=== PATIENT | female | born 1960 | race African-American/Black ===

== ENCOUNTER 2018-05-22 10:44 | Emergency (ER) | payer BC ==
[~2018-05-22] VITALS: Ht 165.1 cm; Wt 75.9 kg
[2018-05-22 10:53] VITALS: Ht 165.1 cm; Wt 75.9 kg
[2018-05-22 14:06] VITALS: BP 125/80
== END 2018-05-22 14:06 | disposition home or self-care (01) ==
LOC: ED 10:44
DX: M54.6 Pain in thoracic spine (principal)